=== PATIENT | female | born 1970 | race Caucasian/White ===

== ENCOUNTER 2017-09-08 22:45 | Emergency (ER) | payer OTHER ==
[~2017-09-08] VITALS: Ht 160 cm; Wt 87.1 kg
[~2017-09-08 22:45] MED LIST: BENADRYL50 MG PO; ENDOCET 5-3251 EACH PO; MOTRIN800 MG PO; NORVASC10 MG PO; PREDNISONE20 MG PO; TOPROL XL100 MG PO; ZANTAC150 MG PO; hydrochlorothiazide; norvasc; toprol
[2017-09-08 23:32] LABS: ALBUMIN 4.4 g/dL (3.2-4.8); CHLORIDE 106 mEq/L (99-109); POTASSIUM 3.9 mEq/L (3.7-5.4); SODIUM 140 mEq/L (136-147)
[2017-09-08 23:33] LABS: MAGNESIUM 2.3 mg/dL (1.3-2.7)
[2017-09-08 23:35] LABS: GLUCOSE 95 mg/dL (70-99); TOTAL PROTEIN 7.4 g/dL (6.4-8.3)
[2017-09-08 23:36] LABS: TOTAL BILIRUBIN 0.5 mg/dL (0.0-1.0)
[2017-09-08 23:38] LABS: ALKALINE PHOSPHATASE 58 IU/L (3-129); CREATININE 0.9 mg/dL (0.6-1.3); GFR ESTIMATE (CALCULATED) > 59 mL/min/
[2017-09-08 23:39] LABS: UREA NITROGEN (BUN) 16 mg/dL (9-23)
[2017-09-08 23:40] LABS: AST (GOT) 20 IU/L (2-34); DIRECT BILIRUBIN 0.1 mg/dL (0.0-0.3)
[2017-09-08 23:41] LABS: ALT (GPT) 24 IU/L (3-49)
[2017-09-08 23:42] LABS: LIPASE 25 U/L (1.0-51.0)
[2017-09-08 23:51] LABS: HEMATOCRIT 42.2 % (36.0-46.0); HEMOGLOBIN 14.9 G/DL (11.9-15.5); MCH 30.8 PG (29.0-34.0); MCHC 35.3 G/DL (30.0-36.0); MCV 87.4 FL (83-99); PLATELET COUNT 272 K/uL (156-360); RBC DIS.WIDTH-CV 12.8 % (11.8-14.6); RBC DIS.WIDTH-SD 40.6 % (39-53); RED BLOOD COUNT 4.83 M/uL (3.80-5.20); TROP-I INTERPRETATION NEGATIVE; TROPONIN-I 0.01 ng/mL (0.0-0.30); WHITE BLOOD COUNT 11.8 K/uL (4.1-10.2)
[2017-09-09 00:03] LABS: APPEARANCE SL.HAZY ((CLEAR)); BILIRUBIN NEGATIVE; BLOOD MODERATE; COLOR YELLOW ((YELLOW)); GLUCOSE (STRIP) NEGATIVE; KETONES NEGATIVE; LEUKOCYTES SMALL; NITRITE NEGATIVE; PROTEIN (STRIP) NEGATIVE; SPECIFIC GRAVITY 1.025 (1.000-1.030); UROBILINOGEN 0.2 MG/DL (0.2-1.0)
[2017-09-09 00:19] LABS: BACTERIA NONE SEEN /HPF; CALCIUM OXALATE CRYSTALS 1+ /HPF; EPITHELIAL CELLS 2+ /HPF; MUCUS TRACE /LPF; UCUL ADDED? YES
[2017-09-09] MEDS ORDERED: ZOFRAN ODT4 MG PO (03:24)
[2017-09-09] MEDS ORDERED: ZANTAC150 MG PO (03:24)
[2017-09-09 04:03] VITALS: BP 131/81
== END 2017-09-09 04:06 | disposition home or self-care (01) ==
LOC: EME 22:45
PROVIDERS: Emergency Medicine
DX: R10.10 Upper abdominal pain, unspecified (principal); R07.9 Chest pain, unspecified; I10 Essential (primary) hypertension; K21.9 Gastro-esophageal reflux disease without esophagitis; Z90.49 Acquired absence of other specified parts of digestive tract; Z86.73 Personal history of transient ischemic attack (TIA), and cerebral infarction without residual deficits; F17.200 Nicotine dependence, unspecified, uncomplicated; Z87.440 Personal history of urinary (tract) infections; Z88.5 Allergy status to narcotic agent; Z88.0 Allergy status to penicillin
CPT/HCPCS: 71046; 74177; 80048; 80076; 81003; 81025; 83690; 83735; 84484; 85027; 87086; 93005; 99281; 99285; J1200